=== PATIENT | male | born 1990 | race American Indian/Alaskan Native ===

== ENCOUNTER 2017-02-28 17:10 | Emergency (ER) | payer MEDICAID, OTHER ==
[2017-02-28 17:29] VITALS: BMI 21.9
[2017-02-28 17:33] VITALS: RESP 18; TEMP 98.1
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
[2017-02-28 18:51] VITALS: BP 124/72; PULSE 72; O2SAT 98
== END 2017-02-28 18:52 | disposition home or self-care (01) ==
LOC: C.ER 17:10
DX: S39.012A Strain of muscle, fascia and tendon of lower back, initial encounter (principal); R10.31 Right lower quadrant pain; V03.10XA Pedestrian on foot injured in collision with car, pick-up truck or van in traffic accident, initial encounter; Y92.410 Unspecified street and highway as the place of occurrence of the external cause

== ENCOUNTER 2018-09-09 05:03 | Emergency (ER) | payer MEDICAID, OTHER ==
[2018-09-09 05:04] VITALS: BMI 21.9
[2018-09-09] MEDS ORDERED: Bacitracin 500 Units/gm Oint Foilpak UD TOP ONE (05:50)
[2018-09-09] MEDS ORDERED: Bacitracin 500 Units/gm Oint Foilpak UD ONE (06:02)
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
[2018-09-09 07:43] VITALS: BP 131/75; PULSE 82; RESP 20; TEMP 98
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
[2018-09-13 11:40] VITALS: O2SAT 100
== END 2018-09-09 07:36 | disposition home or self-care (01) ==
LOC: C.ER 05:03
DX: S46.912A Strain of unspecified muscle, fascia and tendon at shoulder and upper arm level, left arm, initial encounter (principal); S29.011A Strain of muscle and tendon of front wall of thorax, initial encounter; V49.59XA Passenger injured in collision with other motor vehicles in traffic accident, initial encounter
CPT/HCPCS: 71101; 72040; 73030; 96372; 99284; J1885